=== PATIENT | male | born 1955 | race Caucasian/White ===

== ENCOUNTER 2018-06-13 16:27 | Emergency (ER) | payer OTHER ==
[2018-06-13 17:04] LABS: Absolute Lymphocytes (CBC) 0.9 K/uL (0.7-4.9); Absolute Monocytes 0.5 K/uL (0.1-1.3); Basophils % 0.9 % (0-1.3); Eosinophils % 1.4 % (0-4.4); Hematocrit 43.3 % (39.6-49.0); Lymphocytes % 19.3 % (15.3-44.8); MCH 31.3 pg (27.0-35.0); MCV 93.1 fL (80-100); Monocytes % 10.8 % (3.3-12.3); RBC Red Blood Cell Count 4.65 M/uL (4.33-5.43)
[2018-06-13 17:23] LABS: ALT/SGPT 33 U/L (12-78); AST/SGOT 32 U/L (15-37); Alkaline Phosphatase 77 U/L (45-117); BUN Blood Urea Nitrogen 15 mg/dL (7-18); Bicarbonate 29 mmol/L (21-32); Bilirubin Direct 0.1 mg/dL (0-0.2); Bilirubin Total 0.4 mg/dL (0.2-1.0); Glucose Level 87 mg/dL (74-106); NT PRO-BNP 26 pg/mL (<125); Potassium 3.8 mmol/L (3.5-5.1); Sodium Level 138 mmol/L (136-145); Troponin (Emerg Dept Use Only) < 0.02 ng/mL (0.0-0.045)
--- NOTE | 2018-06-13 17:23 | RAD REPORT ---
EXAM DESCRIPTION: RAD - Chest Single View - 06/13/2018 5:16 pm CLINICAL HISTORY: CHEST PAIN Chest pain. COMPARISON: No comparisons FINDINGS: Portable technique limits examination quality. The lungs are grossly clear. The heart is normal in size. No displaced fractures.Old left posterolate ral rib fractures. IMPRESSION: No acute intrathoracic process suspected.
--- NOTE | 2018-06-13 18:25 | EDPHYS ---
Physician Documentation [facility] Name: Parish Lucero Age: 63 yrs Sex: Male : 1955 Arrival Date: 06/13/2018 Time: 16:28 Bed 16 Private MD: ED Physician Irineo Hardy HPI: 06/13 18:09 This 63 yrs old Male presents to ER via Ambulatory with complaints of Chest rn Pain. 18:09 The patient or guardian reports chest pain that is located primarily in the substernal rn area. Onset: yesterday. The pain does not radiate. Associated signs and symptoms: Pertinent positives: palpitations, flushing of face, Pertinent negatives: abdominal pain, cough, diaphoresis, lower extremity pain, lower extremity swelling, syncope, vomiting. The chest pain is described as aching, a heaviness. Duration: The patient or guardian reports multiple episodes, that are intermittent. Modifying factors: The symptoms are alleviated by nothing. the symptoms are aggravated by nothing. Severity of pain: At its worst the pain was mild in the emergency department the pain is unchanged. The patient has not experienced similar symptoms in the past. Reports chest pain, began yesterday intermittent, no radiation, no diaphoresis, no cough/sob. Never had pain like this before. [place] facial flushing, noticed BP high, took extra lisinopril and both problems improved. Feels better, pain not totally resolved. . Historical: - Allergies: 16:32 No Known Allergies; aj1 - Home Meds: 16:32 losartan oral oral [Active]; Simvastatin Oral [Active]; Restoril Oral [Active]; aj1 Hydrocodone-Acetaminophen Oral [Active]; - PMHx: 16:32 Hypertension; Hyperlipidemia; insomnia; aj1 - PSHx: 16:32 knee surgery; aj1 - Immunization history:: Flu vaccine is not up to date. - Social history:: Smoking status: Patient/guardian denies using tobacco. - Ebola Screening: : Patient denies travel to an Ebola-affected area in the 21 days before illness onset. - Family history:: not pertinent. - Hospitalizations: : No recent hospitalization is reported. ROS: 18:09 Constitutional: Negative for fever, chills, and weight loss, Eyes: Negative for injury, rn pain, redness, and discharge, Neck: Negative for injury, pain, and swelling, Cardiovascular: Negative for edema Respiratory: Negative for shortness of breath, cough, wheezing, and pleuritic chest pain, Abdomen/GI: Negative for abdominal pain, nausea, vomiting, diarrhea, and constipation, MS/Extremity: Negative for injury and deformity, Skin: Negative for injury, rash, and discoloration, Neuro: Negative for weakness, numbness, tingling, and seizure. Exam: 18:09 Constitutional: This is a well developed, well nourished patient who is awake, alert, rn and in no acute distress. Head/Face: Normocephalic, atraumatic. Eyes: Pupils equal round and reactive to light, extra-ocular motions intact. Lids and lashes normal. Conjunctiva and sclera are non-icteric and not injected. Cornea within normal limits. Periorbital areas with no swelling, redness, or edema. Cardiovascular: Regular rate and rhythm with a normal S1 and S2. No gallops, murmurs, or rubs. Normal PMI, no JVD. No pulse deficits. Respiratory: Lungs have equal breath sounds bilaterally, clear to auscultation and percussion. No rales, rhonchi or wheezes noted. No increased work of breathing, no retractions or nasal flaring. Abdomen/GI: soft, non-tender Skin: Warm, dry with normal turgor. Normal color with no rashes, no lesions, and no evidence of cellulitis. MS/ Extremity: Pulses equal, no cyanosis. Neurovascular intact. Full, normal range of motion. Equal circumference. Neuro: Awake and alert, GCS 15, oriented to person, place, time, and situation. Cranial nerves II-XII grossly intact. Motor strength 5/5 in all extremities. Sensory grossly intact. Cerebellar exam normal. Vital Signs: 16:32 BP 144 / 95; Pulse 90; Resp 18; Temp 98.2; Pulse Ox 98% on R/A; Weight 86.18 kg (R); aj1 Height 5 ft. 7 in. (170.18 cm) (R); Pain 4/10; 17:00 BP 153 / 93; Pulse 76; Resp 14; Pulse Ox 96% on R/A; kr2 17:45 BP 126 / 92; Pulse 69; Resp 15; Pulse Ox 97% ; kr2 18:35 BP 126 / 90; Pulse 70; Resp 18; Pulse Ox 100% ; kr2 16:32 Body Mass Index 29.76 (86.18 kg, 170.18 cm) aj1 MDM: 16:36 Patient medically screened. rn 18:09 Differential diagnosis: acute myocardial infarction, coronary artery disease rn costochondritis, esophagitis, gastritis, pleurisy, pneumonia, pneumothorax. Data reviewed: vital signs, nurses notes, lab test result(s), EKG, radiologic studies, plain films, and as a result, I will discharge patient. Counseling: I had a detailed discussion with the patient and/or guardian regarding: the historical points, exam findings, and any diagnostic results supporting the discharge/admit diagnosis, lab results, radiology results, the need for outpatient follow up, to return to the emergency department if symptoms worsen or persist or if there are any questions or concerns that arise at home. Response to treatment: the patient's symptoms have resolved after treatment, the patient's condition has returned to base line, the patient is now symptom free, and as a result, I will discharge patient. Special discussion: Based on the history and exam findings, there is no indication for further emergent testing or inpatient evaluation. I discussed with the patient/guardian the need to see the manager human capital for further evaluation of the symptoms. ED course: Pt with normal w/u here, normal ecg and trop, offered admission to hospital for cardiology consult and serial trop, patient requests to go home and f/u with cardiology, recommended daily aspirin and outpt stress, and to return if symptoms worsen of change. . 18:25 ED course: Symptoms may have been due to surge in BP given flushed face, headache, and rn chest pain, that resolved with improvement/lowering of BP. . 06/13 16:50 Order name: LFT's; Complete Time: 17:25 rn 06/13 16:50 Order name: Basic Metabolic Panel; Complete Time: 17:25 rn 06/13 16:50 Order name: CBC with Diff; Complete Time: 17:25 rn 06/13 16:50 Order name: NT PRO-BNP; Complete Time: 17:25 rn 06/13 16:50 Order name: Troponin (emerg Dept Use Only); Complete Time: 17:25 rn 06/13 16:50 Order name: XRAY Chest (1 view); Complete Time: 17:25 rn 06/13 16:50 Order name: EKG; Complete Time: 16:51 rn 06/13 16:50 Order name: Cardiac monitoring; Complete Time: 16:54 rn 06/13 16:50 Order name: EKG - Nurse/Tech; Complete Time: 16:54 rn 06/13 16:50 Order name: IV Saline Lock; Complete Time: 16:54 rn 06/13 16:50 Order name: Labs collected and sent; Complete Time: 16:54 rn 06/13 16:50 Order name: O2 Per Protocol; Complete Time: 16:54 rn 06/13 16:50 Order name: O2 Sat Monitoring; Complete Time: 16:54 rn Administered Medications: No medications were administered Disposition: 06/13/18 18:25 Discharged to Home. Impression: Chest pain, unspecified. - Condition is Stable. - Discharge Instructions: Nonspecific Chest Pain, Hypertension, Pain Without a Known Cause. - Medication Reconciliation Form, Thank You Letter, Antibiotic Education, Prescription Opioid Use, Work release form form. - Follow up: Private Physician; When: As needed; Reason: Recheck today's complaints, Re-evaluation by your physician. - Problem is new. - Symptoms have improved. Signatures: Dispatcher [employer] EDMS Shannan Cohen RN RN aj1 Irineo Hardy MD MD rn Reaves, Karey, RN RN kr2 Corrections: (The following items were deleted from the chart) 18:19 18:09 Constitutional: Negative for fever, chills, and weight loss, Eyes: Negative for rn injury, pain, redness, and discharge, Neck: Negative for injury, pain, and swelling, Cardiovascular: Negative for edema Respiratory: Negative for shortness of breath, cough, wheezing, and pleuritic chest pain, Abdomen/GI: Negative for abdominal pain, nausea, vomiting, diarrhea, and constipation, MS/Extremity: Negative for injury and deformity, Skin: Negative for injury, rash, and discoloration, Neuro: Negative for headache, weakness, numbness, tingling, and seizure, rn 18:38 18:25 06/13/2018 18:25 Discharged to Home. Impression: Chest pain, unspecified. kr2 Condition is Stable. Forms are Medication Reconciliation Form, Thank You Letter, Antibiotic Education, Prescription Opioid Use. Follow up: Private Physician; When: As needed; Reason: Recheck today's complaints, Re-evaluation by your physician. Problem is new. Symptoms have improved. rn
--- NOTE | 2018-06-13 18:25 | ER ---
Nurse's Notes [facility] Name: Parish Lucero Age: 63 yrs Sex: Male : 1955 Arrival Date: 06/13/2018 Time: 16:28 Bed 16 Private MD: Diagnosis: Chest pain, unspecified Presentation: 06/13 16:28 Presenting complaint: Patient states: Substernal chest pain and feeling flushed since aj1 0430 this morning that has gotten progressively worse. Denies SOB, palpitations, dizziness. Transition of care: patient was not received from another setting of care. Onset of symptoms was June 13, 2018 at 04:30. Risk Assessment: Do you want to hurt yourself or someone else? Patient reports no desire to harm self or others. Initial Sepsis Screen: Does the patient meet any 2 criteria? HR > 90 bpm. No. Patient's initial sepsis screen is negative. Does the patient have a suspected source of infection? No. Patient's initial sepsis screen is negative. Care prior to arrival: None. 16:28 Method Of Arrival: Ambulatory aj 16:28 Acuity: MARLO 3 aj1 Triage Assessment: 16:32 General: Appears in no apparent distress. uncomfortable, Behavior is calm, cooperative, aj1 appropriate for age. Pain: Complains of pain in mid-sternal area Pain currently is 4 out of 10 on a pain scale. Neuro: Level of Consciousness is awake, alert, obeys commands. Cardiovascular: Reports chest pain, Denies palpitations, shortness of breath, Patient's skin is warm and dry. Respiratory: Airway is patent Respiratory effort is even, unlabored, Respiratory pattern is regular, symmetrical. Historical: - Allergies: 16:32 No Known Allergies; aj1 - Home Meds: 16:32 losartan oral oral [Active]; Simvastatin Oral [Active]; Restoril Oral [Active]; aj1 Hydrocodone-Acetaminophen Oral [Active]; - PMHx: 16:32 Hypertension; Hyperlipidemia; insomnia; aj1 - PSHx: 16:32 knee surgery; aj1 - Immunization history:: Flu vaccine is not up to date. - Social history:: Smoking status: Patient/guardian denies using tobacco. - Ebola Screening: : Patient denies travel to an Ebola-affected area in the 21 days before illness onset. - Family history:: not pertinent. - Hospitalizations: : No recent hospitalization is reported. Screenin:52 Abuse screen: Denies threats or abuse. Denies injuries from another. Nutritional kr2 screening: No deficits noted. Tuberculosis screening: No symptoms or risk factors identified. Fall Risk None identified. Assessment: 16:48 General: Appears in no apparent distress. uncomfortable, well groomed, well developed, kr2 well nourished, Behavior is calm, cooperative, appropriate for age. Pain: Complains of pain in mid-sternal area Pain does not radiate. Pain currently is 3 out of 10 on a pain scale. Quality of pain is described as pressure, Pain began This morning Is continuous, Alleviated by nothing. Neuro: Level of Consciousness is awake, alert, obeys commands, Oriented to person, place, time, situation, Appropriate for age. Cardiovascular: Heart tones S1 S2 Patient's skin is warm and dry. Rhythm is sinus rhythm. Respiratory: Airway is patent Respiratory effort is even, unlabored, Respiratory pattern is regular, symmetrical, Breath sounds are clear bilaterally. GI: Abdomen is flat, non-distended. EENT: Oral mucosa is moist. Derm: Skin is intact, is healthy with good turgor, Skin is pink, warm \T\ dry. Musculoskeletal: Circulation, motion, and sensation intact. 17:45 Reassessment: Patient appears in no apparent distress at this time. Patient and/or kr2 family updated on plan of care and expected duration. Pain level reassessed. Patient is alert, oriented x 3, equal unlabored respirations, skin warm/dry/pink. Dr. Hardy at bedside discussing lab results with patient. 18:34 Reassessment: Patient appears in no apparent distress at this time. Patient and/or kr2 family updated on plan of care and expected duration. Pain level reassessed. Patient is alert, oriented x 3, equal unlabored respirations, skin warm/dry/pink. Patient states feeling better. Vital Signs: 16:32 BP 144 / 95; Pulse 90; Resp 18; Temp 98.2; Pulse Ox 98% on R/A; Weight 86.18 kg (R); aj1 Height 5 ft. 7 in. (170.18 cm) (R); Pain 4/10; 17:00 BP 153 / 93; Pulse 76; Resp 14; Pulse Ox 96% on R/A; kr2 17:45 BP 126 / 92; Pulse 69; Resp 15; Pulse Ox 97% ; kr2 18:35 BP 126 / 90; Pulse 70; Resp 18; Pulse Ox 100% ; kr2 16:32 Body Mass Index 29.76 (86.18 kg, 170.18 cm) aj1 ED Course: 16:28 Patient arrived in ED. as 16:30 Triage completed. aj1 16:32 Arm band placed on Patient placed in an exam room. aj1 16:35 Irineo Hardy MD is Attending Physician. rn 16:45 Inserted saline lock: 20 gauge in left forearm, using aseptic technique. Blood kr2 collected. 16:47 Jeannette Mckeon, RN is Primary Nurse. kr2 16:52 Patient has correct armband on for positive identification. Bed in low position. Call kr2 light in reach. Side rails up X 1. core blower operator on. Pulse ox on. NIBP on. 16:53 Patient maintains SpO2 saturation greater than 95% on room air. kr2 17:12 EKG done, by pharmacy technician per diem. reviewed by Irineo Hardy MD. 3 17:14 X-ray completed. Portable x-ray completed in exam room. Patient tolerated procedure ml well. 17:16 XRAY Chest (1 view) In Process Unspecified. EDMS 18:36 No provider procedures requiring assistance completed. IV discontinued, intact, kr2 bleeding controlled, No redness/swelling at site. Pressure dressing applied. Administered Medications: No medications were administered Outcome: 18:25 Discharge ordered by . rn 18:37 Discharged to home ambulatory. kr2 18:37 Condition: good 18:37 Discharge instructions given to patient, Instructed on discharge instructions, follow up and referral plans. Demonstrated understanding of instructions, follow-up care. 18:38 Patient left the ED. kr2 Signatures: Dispatcher [employer] EDMS Shannan Cohen RN RN aj1 Teena Jacob Melissa ml Nieto, Roman, MD MD rn Reaves, Karey, RN RN kr2 Monique Rodriguez 3
--- NOTE | 2018-06-14 07:51 | EKG ---
Test Date: 2018-06-13 Test Time: 16:50:28 Experimental Mechanic Electrical: ANDREW MEASUREMENT RESULTS: Intervals: Rate: 81 MI: 148 QRSD: 98 QT: 370 QTc: 429 Ambler: P: 7 MI: 148 QRS: -21 T: 8 INTERPRETIVE STATEMENTS: Normal sinus rhythm Normal ECG No previous ECG available for comparison Electronically Signed On 06-14-18 07:48:49 CDT by José Miguel Burden
== END 2018-06-13 18:38 | disposition home or self-care (01) ==
LOC: ER 16:27
DX: R07.9 Chest pain, unspecified (principal); I10 Essential (primary) hypertension; E78.5 Hyperlipidemia, unspecified
CPT/HCPCS: 36415; 71045; 80048; 80076; 83880; 84484; 85025; 93005; 99285